=== PATIENT | male | born 1960 | race African-American/Black ===

== ENCOUNTER 2018-11-09 10:53 | Inpatient (IN) | payer MEDICAID, OTHER ==
[~2018-11-09] VITALS: Ht 175.3 cm; Wt 58.1 kg
[2018-11-09 11:36] LABS: HEMATOCRIT. 35.1 % (42.0-52.0); HEMOGLOBIN. 11.8 g/dL (14.0-18.0); MEAN CORPUSCULAR HEMOGLOBIN 32.9 pg (28.0-32.0); MEAN CORPUSCULAR VOLUME 98.3 fL (80.0-94.0); PLATELET 257 x1000/uL (130-400); RED BLOOD CELL COUNT 3.57 mill/uL (4.7-6.1); RED CELL DISTRIBUTION WIDTH 15.3 % (11.6-14.6)
[2018-11-09 11:39] LABS: CHLORIDE 95 mEq/L (98-107)
[2018-11-09] MEDS ORDERED: LEVOFLOXACIN 500MG PREMIX 100 ML IV ONE (11:45)
[2018-11-09] MEDS ORDERED: POTASSIUM CHLORIDE 20MEQ TABLET SR PO ONE (11:45)
[2018-11-09] MEDS ORDERED: ALBUTEROL (0.083%) 2.5MG/3ML NEB HHN STA (11:51)
[2018-11-09] MEDS ORDERED: IPRATROPIUM BROMIDE (0.02%) 0.5MG/2.5ML NEB HHN STA (11:51)
[2018-11-09] MEDS ORDERED: FUROSEMIDE 20MG/2ML VIAL IVP ONE (12:00)
[2018-11-09] MEDS ORDERED: ASPIRIN 81MG TABLET PO ONE (12:00)
[2018-11-09 12:24] LABS: PLATELET ESTIMATE NORMAL
[2018-11-09 12:49] LABS: *COCAINE SCREEN URINE NEGATIVE (NEGATIVE); CANNABINOID URINE SCREEN PRESUMTIVE POSITIVE (NEGATIVE); PHENCYCLIDINE URINE SCREEN NEGATIVE (NEGATIVE)
[2018-11-09 12:50] LABS: *AMPHETAMINES SCREEN URINE PRESUMTIVE POSITIVE (NEGATIVE)
[2018-11-09 12:51] LABS: *BENZODIAZEPINES SCREEN URINE NEGATIVE (NEGATIVE); METHADONE URINE SCREEN NEGATIVE (NEGATIVE)
[2018-11-09 12:52] LABS: *BARBITURATES SCREEN URINE NEGATIVE (NEGATIVE)
[2018-11-09 12:53] LABS: OPIATES URINE SCREEN NEGATIVE (NEGATIVE)
[2018-11-09 13:50] VITALS: BP 148/71
[2018-11-09 16:00] VITALS: BP 148/78
[2018-11-09] MEDS ORDERED: DIPHENHYDRAMINE 50MG/ML VIAL IV PRN (16:15)
[2018-11-09] MEDS ORDERED: LORAZEPAM 2MG/ML CPJ IV PRN (16:15)
[2018-11-09] MEDS ORDERED: GUAIFENESIN 200MG/10ML SUGAR FREE UDC PO PRN (16:15)
[2018-11-09] MEDS ORDERED: NA PHOS,M-B/NA PHOS,DI-BA ENEMA 118ML PR PRN (16:15)
[2018-11-09] MEDS ORDERED: DOCUSATE SODIUM 100MG CAPSULE PO PRN (16:15)
[2018-11-09] MEDS ORDERED: MAGNESIUM/ALUMINUM HYDROXIDE/SIMETHICONE 30ML UDC PO PRN (16:15)
[2018-11-09] MEDS ORDERED: ONDANSETRON HCL 4MG/2ML INJ IV PRN (16:15)
[2018-11-09] MEDS ORDERED: CLONIDINE 0.1MG TABLET PO PRN (16:15)
[2018-11-09] MEDS ORDERED: HYDRALAZINE 20MG/ML VIAL IV PRN (16:15)
[2018-11-09 16:38] VITALS: BP 148/78
[2018-11-09] MEDS: ENOXAPARIN 40MG/0.4ML SYR SUBCUT SCH (17:07)
[2018-11-09] MEDS: IPRATROPIUM/ALBUTEROL 0.5-3(2.5)MG/3ML NEB INH PRN ×2 (17:11→20:55)
[2018-11-09 20:00] VITALS: BP 140/83
[2018-11-09] MEDS: SODIUM CHLORIDE 0.9% INJ 3ML FLUSH IVF SCH (21:23)
[2018-11-10] VITALS: BP 153/83
[2018-11-10 00:21] LABS: CREATINE KINASE 95 IU/L (39-308)
[2018-11-10 00:22] LABS: CREATINE KINASE MB FRACTION < 1.0 ng/mL (0.5-3.6)
[2018-11-10] MEDS: HYDROCODONE/ACETAMINOPHEN 10/325MG TABLET PO PRN ×2 (03:18→06:45)
[2018-11-10 04:00] VITALS: BP 139/83
[2018-11-10] MEDS: IPRATROPIUM/ALBUTEROL 0.5-3(2.5)MG/3ML NEB INH PRN ×3 (04:02→14:55)
[2018-11-10] MEDS: ACETAMINOPHEN 325MG TABLET PO PRN (05:30)
[2018-11-10] MEDS: SODIUM CHLORIDE 0.9% INJ 3ML FLUSH IVF SCH ×3 (05:30→22:38)
[2018-11-10 07:18] LABS: HEMATOCRIT. 34.8 % (42.0-52.0); HEMOGLOBIN. 11.6 g/dL (14.0-18.0); MEAN CORPUSCULAR HEMOGLOBIN 33.3 pg (28.0-32.0); MEAN CORPUSCULAR VOLUME 99.7 fL (80.0-94.0); MEAN PLATELET VOLUME 7.1 fl (7.4-10.4); PLATELET 294 x1000/uL (130-400); RED CELL DISTRIBUTION WIDTH 15.1 % (11.6-14.6)
[2018-11-10 08:00] VITALS: BP 126/69
[2018-11-10] MEDS: LEVOFLOXACIN 500MG PREMIX 100 ML IV SCH (08:16)
[2018-11-10] MEDS: ASPIRIN 81MG EC TABLET PO SCH (08:16)
[2018-11-10 09:54] LABS: CHLORIDE 95 mEq/L (98-107)
[2018-11-10 10:12] LABS: LDL CHOLESTEROL 52 mg/dL (5-100)
[2018-11-10 10:13] LABS: CREATINE KINASE 84 IU/L (39-308)
[2018-11-10 10:14] LABS: CREATINE KINASE MB FRACTION < 1.0 ng/mL (0.5-3.6); HDL CHOLESTEROL 20 mg/dL (40-59)
[2018-11-10 10:15] LABS: T4 FREE 1.09 ng/dL (0.76-1.46)
[2018-11-10 12:00] VITALS: BP 124/71
[2018-11-10 13:12] LABS: PLATELET ESTIMATE NORMAL
[2018-11-10 14:11] LABS: T4 FREE 1.09 ng/dL (0.76-1.46)
[2018-11-10 14:49] LABS: CREATINE KINASE 72 IU/L (39-308); CREATINE KINASE MB FRACTION < 1.0 ng/mL (0.5-3.6)
[2018-11-10 16:00] VITALS: BP 125/81
[2018-11-10] MEDS: ENOXAPARIN 40MG/0.4ML SYR SUBCUT SCH (17:46)
[2018-11-10 20:00] VITALS: BP 129/81
[2018-11-10] MEDS ORDERED: VANCOMYCIN 1250MG in DEXTROSE 5% WATER 250ML IV SCH (20:00)
[2018-11-10] MEDS ORDERED: POTASSIUM CHLORIDE 20MEQ TABLET SR PO NR (20:30)
[2018-11-11] VITALS: BP 128/79
[2018-11-11 04:00] VITALS: BP 110/83
[2018-11-11] MEDS ORDERED: VANCOMYCIN 1 G PREMIX 200 ML IV SCH (04:00)
[2018-11-11 04:01] LABS: CREATINE KINASE 129 IU/L (39-308)
[2018-11-11 04:03] LABS: CREATINE KINASE MB FRACTION < 1.0 ng/mL (0.5-3.6)
[2018-11-11] MEDS: SODIUM CHLORIDE 0.9% INJ 3ML FLUSH IVF SCH ×3 (06:25→21:46)
[2018-11-11] MEDS: HYDROMORPHONE HCL/PF 2MG/ML CPJ IV PRN ×2 (06:31→10:40)
[2018-11-11 07:32] LABS: CREATINE KINASE 157 IU/L (39-308)
[2018-11-11 07:34] LABS: CREATINE KINASE MB FRACTION < 1.0 ng/mL (0.5-3.6)
[2018-11-11 08:00] VITALS: BP 131/73
[2018-11-11] MEDS: IPRATROPIUM/ALBUTEROL 0.5-3(2.5)MG/3ML NEB HHN SCH ×3 (08:25→20:08)
[2018-11-11] MEDS: ASPIRIN 81MG EC TABLET PO SCH (09:30)
[2018-11-11] MEDS: LEVOFLOXACIN 500MG PREMIX 100 ML IV SCH (09:31)
[2018-11-11 12:00] VITALS: BP 122/75
[2018-11-11] MEDS: VANCOMYCIN 1 G PREMIX 200 ML IV SCH ×2 (14:06→21:46)
[2018-11-11 16:00] VITALS: BP 139/77
[2018-11-11] MEDS: ENOXAPARIN 40MG/0.4ML SYR SUBCUT SCH (17:00)
[2018-11-11 20:00] VITALS: BP 128/77
[2018-11-12] VITALS: BP 126/78
[2018-11-12] MEDS: IPRATROPIUM/ALBUTEROL 0.5-3(2.5)MG/3ML NEB HHN SCH ×4 (02:05→21:40)
[2018-11-12 04:00] VITALS: BP 134/72
[2018-11-12 05:13] LABS: BASOPHILS % 0.1 % (0.0-2.0); EOSINOPHILS % 0.1 % (0.0-5.0); HEMATOCRIT. 35.2 % (42.0-52.0); HEMOGLOBIN. 11.8 g/dL (14.0-18.0); LYMPHOCYTES % 17.8 % (20.0-50.0); MEAN CORPUSCULAR HEMOGLOBIN 33.5 pg (28.0-32.0); MEAN CORPUSCULAR VOLUME 100.1 fL (80.0-94.0); MEAN PLATELET VOLUME 6.8 fl (7.4-10.4); PLATELET 425 x1000/uL (130-400); RED BLOOD CELL COUNT 3.51 mill/uL (4.7-6.1); RED CELL DISTRIBUTION WIDTH 15.6 % (11.6-14.6)
[2018-11-12 05:14] LABS: HIV SCREEN 4G Non Reactive (Non Reactive)
[2018-11-12 05:35] LABS: CHLORIDE 98 mEq/L (98-107)
[2018-11-12] MEDS: VANCOMYCIN 1 G PREMIX 200 ML IV SCH ×2 (05:39→13:58)
[2018-11-12] MEDS: SODIUM CHLORIDE 0.9% INJ 3ML FLUSH IVF SCH ×3 (05:39→21:22)
[2018-11-12 05:47] LABS: VANCOMYCIN TROUGH 11.5 ug/mL (5.0-10.0)
[2018-11-12 08:00] VITALS: BP 117/78
[2018-11-12] MEDS: ASPIRIN 81MG EC TABLET PO SCH (09:19)
[2018-11-12] MEDS: LEVOFLOXACIN 500MG PREMIX 100 ML IV SCH (09:20)
[2018-11-12] MEDS: ACETAMINOPHEN 325MG TABLET PO PRN (09:27)
[2018-11-12 12:00] VITALS: BP 120/70
[2018-11-12 16:00] VITALS: BP 118/76
[2018-11-12] MEDS: ENOXAPARIN 40MG/0.4ML SYR SUBCUT SCH (17:45)
[2018-11-12 20:00] VITALS: BP 114/65
[2018-11-12] MEDS: VANCOMYCIN 1500MG in DEXTROSE 5% WATER 250ML IV SCH (21:20)
[2018-11-12] MEDS: HYDROCODONE/ACETAMINOPHEN 10/325MG TABLET PO PRN (21:21)
[2018-11-13] VITALS: BP 116/61
[2018-11-13] MEDS: IPRATROPIUM/ALBUTEROL 0.5-3(2.5)MG/3ML NEB HHN SCH ×4 (02:14→21:36)
[2018-11-13] MEDS: HYDROCODONE/ACETAMINOPHEN 10/325MG TABLET PO PRN ×2 (03:43→10:24)
[2018-11-13 04:00] VITALS: BP 142/80
[2018-11-13] MEDS: VANCOMYCIN 1500MG in DEXTROSE 5% WATER 250ML IV SCH ×4 (05:54→21:53)
[2018-11-13] MEDS: SODIUM CHLORIDE 0.9% INJ 3ML FLUSH IVF SCH ×3 (05:54→21:53)
[2018-11-13 08:00] VITALS: BP 137/84
[2018-11-13] MEDS: ASPIRIN 81MG EC TABLET PO SCH (08:25)
[2018-11-13] MEDS: LEVOFLOXACIN 500MG PREMIX 100 ML IV SCH (08:25)
[2018-11-13 12:00] VITALS: BP 117/75
[2018-11-13 15:06] LABS: QFT TB GOLD PLUS Negative (Negative); QFT TB1 AG VALUE 0.06 IU/mL (.)
[2018-11-13 16:00] VITALS: BP 115/76
[2018-11-13] MEDS: ENOXAPARIN 40MG/0.4ML SYR SUBCUT SCH (16:22)
[2018-11-13 20:00] VITALS: BP 128/77
[2018-11-14] VITALS: BP_SYST 124; BP_SYST 135; BP_DIAS 67; BP_DIAS 81
[2018-11-14] MEDS: IPRATROPIUM/ALBUTEROL 0.5-3(2.5)MG/3ML NEB HHN SCH ×2 (02:52→11:04)
[2018-11-14 04:00] VITALS: BP 124/67
[2018-11-14] MEDS: VANCOMYCIN 1500MG in DEXTROSE 5% WATER 250ML IV SCH (05:34)
[2018-11-14] MEDS: SODIUM CHLORIDE 0.9% INJ 3ML FLUSH IVF SCH ×2 (05:45→14:00)
[2018-11-14 07:02] LABS: BASOPHILS % 0.2 % (0.0-2.0); EOSINOPHILS % 0.4 % (0.0-5.0); HEMATOCRIT. 31.3 % (42.0-52.0); HEMOGLOBIN. 10.5 g/dL (14.0-18.0); LYMPHOCYTES % 21.3 % (20.0-50.0); MEAN CORPUSCULAR HEMOGLOBIN 33.5 pg (28.0-32.0); MEAN CORPUSCULAR VOLUME 99.7 fL (80.0-94.0); MEAN PLATELET VOLUME 6.5 fl (7.4-10.4); MONOCYTES % 11.1 % (2.0-8.0); PLATELET 517 x1000/uL (130-400); RED BLOOD CELL COUNT 3.14 mill/uL (4.7-6.1)
[2018-11-14 07:11] LABS: CHLORIDE 98 mEq/L (98-107)
[2018-11-14 08:12] VITALS: BP 113/70
[2018-11-14 08:18] VITALS: BP 102/81
[2018-11-14] MEDS: ASPIRIN 81MG EC TABLET PO SCH (08:21)
[2018-11-14] MEDS: LEVOFLOXACIN 500MG PREMIX 100 ML IV SCH (08:21)
[2018-11-14 12:25] VITALS: BP 121/79
[2018-11-14 12:35] VITALS: BP 121/79
[2018-11-14] MEDS ORDERED: VANCOMYCIN 1250MG in DEXTROSE 5% WATER 250ML IV SCH (17:00)
== END 2018-11-14 15:10 | disposition home or self-care (01) | DRG 720 ==
LOC: ER 11:11 → EDBEDREQ 12:07 → 7WST 12:12 → EDBEDREQ 12:18 → ENRESERV 13:16
PROVIDERS: ADMIT Internal Medicine; ATTEND Internal Medicine
DX: A40.3 Sepsis due to Streptococcus pneumoniae (principal); J96.00 Acute respiratory failure, unspecified whether with hypoxia or hypercapnia; J13 Pneumonia due to Streptococcus pneumoniae; E44.0 Moderate protein-calorie malnutrition; E87.1 Hypo-osmolality and hyponatremia; D64.9 Anemia, unspecified; E87.6 Hypokalemia; F14.10 Cocaine abuse, uncomplicated; F15.10 Other stimulant abuse, uncomplicated; B96.89 Other specified bacterial agents as the cause of diseases classified elsewhere; F12.10 Cannabis abuse, uncomplicated; Z68.1 Body mass index [BMI] 19.9 or less, adult
CPT/HCPCS: 36415; 71045; 80048; 80061; 80202; 80305; 82550; 82553; 83036; 83880; 84439; 84443; 84484; 85379; 86480; 86592; 87077; 87186; 87389; 87804; 93005; 93306; 93970; 94640; 96374; 96375; 97110; 97116; 97162; 97166; 99291; J1170; J1650; J1940; J1956; J2060; J3370; J7050; J7060; J7611; J7620

== ENCOUNTER 2020-05-20 17:31 | Inpatient (IN) | payer MEDICAID ==
[~2020-05-20] VITALS: Ht 170.2 cm; Wt 67.3 kg
[2020-05-20 19:11] LABS: HEMATOCRIT. 39.8 % (42.0-52.0); HEMOGLOBIN. 13.5 g/dL (14.0-18.0); MEAN PLATELET VOLUME 6.6 fl (7.4-10.4); PLATELET 263 x1000/uL (130-400); RED BLOOD CELL COUNT 3.87 mill/uL (4.7-6.1); RED CELL DISTRIBUTION WIDTH 15.2 % (11.6-14.6)
[2020-05-20 19:17] LABS: CHLORIDE 99 mEq/L (98-107)
[2020-05-20 20:12] LABS: PLATELET ESTIMATE NORMAL
[2020-05-20] MEDS ORDERED: PIPERACILLIN/TAZOBACTAM 3.375GM/50ML PREMIX IV ONE (22:15)
[2020-05-20] MEDS ORDERED: PIPERACILLIN/TAZ 3.375G PREMIX 50 ML IV NR (22:30)
[2020-05-21] MEDS ORDERED: IPRATROPIUM/ALBUTEROL 0.5-3(2.5)MG/3ML NEB HHN PRN (00:15)
[2020-05-21] MEDS ORDERED: ONDANSETRON HCL 4MG/2ML INJ IV PRN (00:15)
[2020-05-21] MEDS ORDERED: GUAIFENESIN 200MG/10ML SUGAR FREE UDC PO PRN (00:15)
[2020-05-21] MEDS ORDERED: MAGNESIUM/ALUMINUM HYDROXIDE/SIMETHICONE 30ML UDC PO PRN (00:15)
[2020-05-21] MEDS ORDERED: BENZONATATE 200MG CAPSULE PO PRN (00:15)
[2020-05-21] MEDS ORDERED: DIPHENHYDRAMINE 50MG/ML VIAL IV PRN (00:15)
[2020-05-21] MEDS ORDERED: ACETAMINOPHEN 325MG TABLET PO PRN ×2 (00:15)
[2020-05-21] MEDS ORDERED: CLONIDINE 0.1MG TABLET PO PRN (00:15)
[2020-05-21] MEDS ORDERED: MAGNESIUM HYDROXIDE 400MG/5ML 30ML UDC PO PRN (00:45)
[2020-05-21] MEDS: LEVOFLOXACIN 500MG PREMIX 100 ML IV SCH (04:43)
[2020-05-21 05:28] LABS: CLARITY URINE CLEAR (CLEAR); COLOR URINE YELLOW (YELLOW); KETONES URINE NEGATIVE (NEGATIVE); LEUKOCYTE ESTERASE URINE NEGATIVE (NEGATIVE); NITRITE URINE NEGATIVE (NEGATIVE); OCCULT BLOOD URINE TRACE (NEGATIVE); PH URINE 5.5 (4.5-8.0); PROTEIN URINE 3+ (NEGATIVE); SPECIFIC GRAVITY URINE 1.028 (1.005-1.030)
[2020-05-21] MEDS: SODIUM CHLORIDE 0.9% INJ 3ML FLUSH IVF SCH ×3 (06:09→22:00)
[2020-05-21] MEDS: GUAIFENESIN 600MG ER TABLET PO SCH ×2 (09:00→21:00)
[2020-05-21] MEDS ORDERED: ENOXAPARIN 40MG/0.4ML SYR SUBCUT SCH (09:00)
[2020-05-21] MEDS ORDERED: DILTIAZEM HCL 5MG/ML 5ML VIAL IV ONE (12:00)
[2020-05-21] MEDS ORDERED: DILTIAZEM HCL 125 MG in DEXT 5% WATER 100 ML IV ONE (12:30)
[2020-05-21] MEDS ORDERED: DILTIAZEM HCL 125 MG in DEXTROSE 5% WATER 125 ML IV PRN (12:30)
[2020-05-21] MEDS: DILTIAZEM HCL 60MG TABLET PO SCH ×2 (14:30→22:00)
[2020-05-21] MEDS ORDERED: IPRATROPIUM/ALBUTEROL 0.5-3(2.5)MG/3ML NEB HHN NR (15:15)
[2020-05-21] MEDS ORDERED: METOPROLOL TARTRATE 5MG/5ML VIAL IV NR (15:30)
[2020-05-21] MEDS: ENOXAPARIN 80MG/0.8ML SYR SUBCUT SCH (16:30)
[2020-05-21 16:52] LABS: BG BASE EXCESS 1.2 mmol/L (-2.0-2.0); BG CARBOXYHEMOGLOBIN 0.3 % (0.5-1.5); BG FRACTION INSPIRED OXYGEN 48; BG HCO3 ACT 24.7 mmol/L (22.0-26.0); BG METHEMOGLOBIN 0.3 % (0.0-1.5); BG OXYHEMOGLOBIN 96.4 % (94.0-97.0); BG PCO2 35.6 mmHg (35.0-45.0); BG PH 7.459 (7.350-7.450); BG PO2 87.6 mmHg (75.0-100.0); BG SAMPLE SITE RIGHT BRACHIAL; BG VENT MODE NASAL CANNULA
[2020-05-21] MEDS ORDERED: VANCOMYCIN 1250MG in DEXTROSE 5% WATER 250ML IV NR (18:00)
[2020-05-21] MEDS ORDERED: METOPROLOL TARTRATE 5MG/5ML VIAL IV SCH (20:00)
[2020-05-21] MEDS ORDERED: ZOLPIDEM TARTRATE 5MG TABLET PO PRN (21:00)
[2020-05-22] MEDS: VANCOMYCIN 1 G PREMIX 200 ML IV SCH ×3 (02:00→18:35)
[2020-05-22] MEDS: LEVOFLOXACIN 500MG PREMIX 100 ML IV SCH (04:00)
[2020-05-22 05:20] LABS: BASOPHILS % 0.1 % (0.0-2.0); EOSINOPHILS % 0.1 % (0.0-5.0); HEMOGLOBIN. 11.8 g/dL (14.0-18.0); LYMPHOCYTES % 16.4 % (20.0-50.0); MEAN CORPUSCULAR HEMOGLOBIN 34.5 pg (28.0-32.0); MEAN CORPUSCULAR VOLUME 102.5 fL (80.0-94.0); MONOCYTES % 7.7 % (2.0-8.0); NEUTROPHILS % 75.7 % (40.0-76.0); PLATELET 256 x1000/uL (130-400); RED BLOOD CELL COUNT 3.41 mill/uL (4.7-6.1); RED CELL DISTRIBUTION WIDTH 14.9 % (11.6-14.6)
[2020-05-22 05:31] LABS: CHLORIDE 100 mEq/L (98-107)
[2020-05-22 05:58] LABS: INR 1.2
[2020-05-22] MEDS: SODIUM CHLORIDE 0.9% INJ 3ML FLUSH IVF SCH ×2 (06:10→15:24)
[2020-05-22] MEDS: ENOXAPARIN 80MG/0.8ML SYR SUBCUT SCH (06:11)
[2020-05-22] MEDS ORDERED: DILTIAZEM HCL 125 MG in DEXT 5% WATER 100 ML IV SCH ×2 (08:00→16:00)
[2020-05-22 10:44] LABS: BG CARBOXYHEMOGLOBIN 0.7 % (0.5-1.5); BG DEOXYHEMOGLOBIN 4.8 % (0.0-5.0); BG FRACTION INSPIRED OXYGEN 21; BG METHEMOGLOBIN 0.3 % (0.0-1.5); BG OXYGEN SATURATION 95.2 % (92.0-98.5); BG OXYHEMOGLOBIN 94.2 % (94.0-97.0); BG PCO2 33.9 mmHg (35.0-45.0); BG PH 7.485 (7.350-7.450); BG PO2 70.2 mmHg (75.0-100.0); BG SAMPLE SITE RIGHT BRACHIAL; BG TOTAL HEMOGLOBIN 14.1 g/dL (12.0-18.0); BG VENT MODE ROOM AIR
[2020-05-22] MEDS: NICOTINE 14MG PATCH TD SCH (12:16)
[2020-05-22] MEDS: GUAIFENESIN 600MG ER TABLET PO SCH ×2 (12:16→21:00)
[2020-05-22] MEDS: METOPROLOL TARTRATE 5MG/5ML VIAL IV SCH ×2 (12:17→18:34)
[2020-05-22] MEDS: DILTIAZEM HCL 30MG TABLET PO SCH ×2 (15:28→18:35)
[2020-05-23] VITALS (8 sets, daily range): BP systolic 120–147; BP diastolic 75–95
[2020-05-23] MEDS: VANCOMYCIN 1 G PREMIX 200 ML IV SCH ×3 (01:00→15:34)
[2020-05-23] MEDS: METOPROLOL TARTRATE 5MG/5ML VIAL IV SCH ×2 (02:00→09:45)
[2020-05-23] MEDS: LEVOFLOXACIN 500MG PREMIX 100 ML IV SCH (05:05)
[2020-05-23] MEDS: DILTIAZEM HCL 30MG TABLET PO SCH ×3 (06:11→18:48)
[2020-05-23] MEDS: SODIUM CHLORIDE 0.9% INJ 3ML FLUSH IVF SCH ×3 (06:11→21:26)
[2020-05-23] MEDS: ENOXAPARIN 80MG/0.8ML SYR SUBCUT SCH ×2 (06:12→18:46)
[2020-05-23] MEDS: NICOTINE 14MG PATCH TD SCH (09:46)
[2020-05-23] MEDS: GUAIFENESIN 600MG ER TABLET PO SCH ×2 (09:47→21:25)
[2020-05-23 10:21] LABS: BASOPHILS % 0.1 % (0.0-2.0); EOSINOPHILS % 0.1 % (0.0-5.0); HEMATOCRIT. 36.5 % (42.0-52.0); HEMOGLOBIN. 12.2 g/dL (14.0-18.0); LYMPHOCYTES % 21.7 % (20.0-50.0); MEAN CORPUSCULAR HEMOGLOBIN 34.2 pg (28.0-32.0); MEAN CORPUSCULAR VOLUME 102.6 fL (80.0-94.0); MEAN PLATELET VOLUME 6.6 fl (7.4-10.4); MONOCYTES % 14.3 % (2.0-8.0); NEUTROPHILS % 63.8 % (40.0-76.0); PLATELET 272 x1000/uL (130-400); RED BLOOD CELL COUNT 3.55 mill/uL (4.7-6.1); RED CELL DISTRIBUTION WIDTH 15.3 % (11.6-14.6)
[2020-05-23 10:41] LABS: CHLORIDE 104 mEq/L (98-107)
[2020-05-23] MEDS: METOPROLOL TARTRATE 25MG TABLET PO SCH (21:26)
[2020-05-24] VITALS: BP 121/77
[2020-05-24] MEDS: DILTIAZEM HCL 30MG TABLET PO SCH ×4 (00:42→18:07)
[2020-05-24] MEDS: VANCOMYCIN 1 G PREMIX 200 ML IV SCH ×3 (00:43→15:54)
[2020-05-24 04:00] VITALS: BP 129/88
[2020-05-24] MEDS: ENOXAPARIN 80MG/0.8ML SYR SUBCUT SCH ×2 (05:12→18:07)
[2020-05-24] MEDS: SODIUM CHLORIDE 0.9% INJ 3ML FLUSH IVF SCH ×3 (05:12→21:17)
[2020-05-24 07:08] LABS: HEMATOCRIT. 34.8 % (42.0-52.0); HEMOGLOBIN. 11.9 g/dL (14.0-18.0); MEAN CORPUSCULAR VOLUME 102.7 fL (80.0-94.0); MEAN PLATELET VOLUME 6.5 fl (7.4-10.4); PLATELET 283 x1000/uL (130-400); RED BLOOD CELL COUNT 3.39 mill/uL (4.7-6.1); RED CELL DISTRIBUTION WIDTH 15.1 % (11.6-14.6)
[2020-05-24 07:22] LABS: CHLORIDE 107 mEq/L (98-107)
[2020-05-24 08:00] VITALS: BP 127/101
[2020-05-24] MEDS: METOPROLOL TARTRATE 25MG TABLET PO SCH ×2 (08:26→21:16)
[2020-05-24] MEDS: GUAIFENESIN 600MG ER TABLET PO SCH ×2 (08:26→21:16)
[2020-05-24] MEDS: NICOTINE 14MG PATCH TD SCH (08:27)
[2020-05-24] MEDS: LEVOFLOXACIN 500MG TABLET PO SCH (11:52)
[2020-05-24 12:00] VITALS: BP 118/72
[2020-05-24 13:29] LABS: *AMPHETAMINES SCREEN URINE NEGATIVE (NEGATIVE)
[2020-05-24 13:30] LABS: *BARBITURATES SCREEN URINE NEGATIVE (NEGATIVE); *BENZODIAZEPINES SCREEN URINE NEGATIVE (NEGATIVE); *COCAINE SCREEN URINE NEGATIVE (NEGATIVE); CANNABINOID URINE SCREEN PRESUMTIVE POSITIVE (NEGATIVE); METHADONE URINE SCREEN NEGATIVE (NEGATIVE); OPIATES URINE SCREEN NEGATIVE (NEGATIVE); PHENCYCLIDINE URINE SCREEN NEGATIVE (NEGATIVE)
[2020-05-24 16:00] VITALS: BP 130/87
[2020-05-24 17:20] LABS: PLATELET ESTIMATE NORMAL
[2020-05-24 20:00] VITALS: BP 128/85
[2020-05-25] VITALS: BP 118/88
[2020-05-25] MEDS: VANCOMYCIN 1 G PREMIX 200 ML IV SCH ×2 (01:04→11:27)
[2020-05-25] MEDS: DILTIAZEM HCL 30MG TABLET PO SCH ×3 (01:05→11:32)
[2020-05-25 04:00] VITALS: BP 117/73
[2020-05-25] MEDS: ENOXAPARIN 80MG/0.8ML SYR SUBCUT SCH (05:58)
[2020-05-25] MEDS: SODIUM CHLORIDE 0.9% INJ 3ML FLUSH IVF SCH (06:00)
[2020-05-25 08:00] VITALS: BP 131/84
[2020-05-25] MEDS: METOPROLOL TARTRATE 25MG TABLET PO SCH (11:28)
[2020-05-25] MEDS: NICOTINE 14MG PATCH TD SCH (11:28)
[2020-05-25] MEDS: GUAIFENESIN 600MG ER TABLET PO SCH (11:32)
[2020-05-25] MEDS: LEVOFLOXACIN 500MG TABLET PO SCH (11:32)
[2020-05-25 17:13] VITALS: BP 131/84
== END 2020-05-25 18:00 | disposition home or self-care (01) | DRG 720 ==
LOC: ER 17:31 → 3WST 22:09 → ENRESERV 05-21 07:14 → CANRESERV 05-21 12:01 → EDBEDREQSVC 05-21 12:30 → EDBEDREQTM 05-22 19:51 → EDBEDREQSVC 05-22 19:51 → EDBEDREQDT 05-22 19:51 → ENRESERV 05-23 01:31 → 6EST 05-24 17:47
PROVIDERS: ADMIT Internal Medicine; ATTEND Internal Medicine
DX: A41.9 Sepsis, unspecified organism (principal); J18.9 Pneumonia, unspecified organism; E46 Unspecified protein-calorie malnutrition; E87.2 Acidosis; I10 Essential (primary) hypertension; I47.1 Supraventricular tachycardia; I48.91 Unspecified atrial fibrillation; I48.92 Unspecified atrial flutter; K56.41 Fecal impaction; J45.909 Unspecified asthma, uncomplicated; J96.01 Acute respiratory failure with hypoxia; J91.8 Pleural effusion in other conditions classified elsewhere; R65.20 Severe sepsis without septic shock; Z20.822 Contact with and (suspected) exposure to COVID-19; F15.90 Other stimulant use, unspecified, uncomplicated; F17.210 Nicotine dependence, cigarettes, uncomplicated; Z79.899 Other long term (current) drug therapy; Z59.0 Homelessness; Z68.23 Body mass index [BMI] 23.0-23.9, adult; Z79.82 Long term (current) use of aspirin; Z91.19 Patient's noncompliance with other medical treatment and regimen; Z87.01 Personal history of pneumonia (recurrent); Z87.09 Personal history of other diseases of the respiratory system
CPT/HCPCS: 36415; 71045; 71250; 74176; 80048; 80076; 80202; 80305; 84484; 85025; 93005; 93306; 99291; C9803; J1650; J1956; J2543; J3370; J3490; J7040; J7060

== ENCOUNTER 2021-11-18 14:36 | Emergency (ER) | payer MEDICAID ==
[~2021-11-18] VITALS: Ht 170.2 cm; Wt 65.0 kg
[2021-11-18 14:43] VITALS: BP 142/88
[2021-11-18] MEDS ORDERED: ACETAMINOPHEN 325MG TABLET PO ONE (15:30)
== END 2021-11-18 20:54 | disposition home or self-care (01) ==
LOC: ER 14:36
DX: M79.18 Myalgia, other site (principal); Z59.00 Homelessness unspecified; Z87.891 Personal history of nicotine dependence
CPT/HCPCS: 99283

== ENCOUNTER 2022-03-18 08:59 | Inpatient (IN) | payer MEDICAID ==
[~2022-03-18] VITALS: Ht 175.3 cm; Wt 65.0 kg
[2022-03-18] MEDS ORDERED: SODIUM CHLORIDE 0.9% 1,000 ML IV ONE (09:45)
[2022-03-18 09:52] LABS: HEMATOCRIT. 31.2 % (42.0-52.0); HEMOGLOBIN. 10.1 g/dL (14.0-18.0); MEAN CORPUSCULAR HEMOGLOBIN 34.7 pg (28.0-32.0); MEAN CORPUSCULAR VOLUME 107.5 fL (80.0-94.0); PLATELET 191 x1000/uL (130-400); RED CELL DISTRIBUTION WIDTH 16.5 % (11.6-14.6)
[2022-03-18 09:59] LABS: CHLORIDE 103 mEq/L (98-107)
[2022-03-18 10:13] LABS: INR 1.7; PROTHROMBIN TIME 17.7 sec (9.6-11.0)
[2022-03-18 10:20] LABS: PLATELET ESTIMATE NORMAL
[2022-03-18] MEDS ORDERED: PROPOFOL 10MG/ML 100ML 100 ML IV SCH (10:30)
[2022-03-18] MEDS ORDERED: VECURONIUM BROMIDE 10 MG/VIAL IV NR (10:30)
[2022-03-18] MEDS ORDERED: ETOMIDATE 2MG/ML 10ML VIAL IV NR (10:30)
[2022-03-18] MEDS ORDERED: NOREPINEPHRINE 8MG/250ML PMX 250 ML IV ONE (10:33)
[2022-03-18] MEDS ORDERED: FENTANYL 2500MCG/250ML PMX 250 ML IV ONE ×2 (10:33→11:24)
[2022-03-18 10:55] LABS: BG BASE EXCESS -13.2 mmol/L (-2.0-2.0); BG CARBOXYHEMOGLOBIN 0.3 % (0.5-1.5); BG DEOXYHEMOGLOBIN 5.2 % (0.0-5.0); BG HCO3 ACT 17.3 mmol/L (22.0-26.0); BG METHEMOGLOBIN 0.5 % (0.0-1.5); BG OXYGEN SATURATION 94.8 % (92.0-98.5); BG PCO2 61.3 mmHg (35.0-45.0); BG PH 7.068 (7.350-7.450); BG PO2 103.9 mmHg (75.0-100.0); BG SAMPLE SITE RIGHT RADIAL; BG TOTAL HEMOGLOBIN 12.2 g/dL (12.0-18.0); BG VENT MODE VENT - AC
[2022-03-18 11:17] LABS: CLARITY URINE CLOUDY (CLEAR); COLOR URINE YELLOW (YELLOW); KETONES URINE NEGATIVE (NEGATIVE); LEUKOCYTE ESTERASE URINE 2+ (NEGATIVE); NITRITE URINE POSITIVE (NEGATIVE); OCCULT BLOOD URINE NEGATIVE (NEGATIVE); PROTEIN URINE 2+ (NEGATIVE); SPECIFIC GRAVITY URINE 1.013 (1.005-1.030)
[2022-03-18] MEDS ORDERED: DOXYCYCLINE HYCLATE 100 MG/VIAL IV ONE (11:45)
[2022-03-18] MEDS ORDERED: CEFTRIAXONE 1 G PREMIX 50 ML IV ONE (11:45)
[2022-03-18] MEDS ORDERED: POTASSIUM CHLORIDE 20MEQ/PACKET NG SCH (12:00)
[2022-03-18] MEDS ORDERED: KCL 20MEQ/100ML PREMIX 100 ML IV SCH (12:00)
[2022-03-18] MEDS ORDERED: DOXYCYCLINE 100MG in DEXTROSE 5% WATER 100ML IV NR (12:30)
[2022-03-18 12:45] VITALS: BP 96/56
[2022-03-18 12:48] LABS: CHLORIDE 106 mEq/L (98-107)
[2022-03-18 12:54] LABS: INR 2.6; PROTHROMBIN TIME 25.8 sec (9.6-11.0)
[2022-03-18] MEDS ORDERED: IPRATROPIUM/ALBUTEROL 0.5-3(2.5)MG/3ML NEB HHN PRN (13:00)
[2022-03-18 13:28] LABS: BG BASE EXCESS -18.2 mmol/L (-2.0-2.0); BG CARBOXYHEMOGLOBIN 0.6 % (0.5-1.5); BG DEOXYHEMOGLOBIN 25.5 % (0.0-5.0); BG FRACTION INSPIRED OXYGEN 100; BG HCO3 ACT 13.6 mmol/L (22.0-26.0); BG METHEMOGLOBIN 0.6 % (0.0-1.5); BG OXYGEN SATURATION 74.2 % (92.0-98.5); BG OXYHEMOGLOBIN 73.3 % (94.0-97.0); BG PCO2 60.6 mmHg (35.0-45.0); BG PH 6.969 (7.350-7.450); BG PO2 58.5 mmHg (75.0-100.0); BG SAMPLE SITE LEFT RADIAL; BG TOTAL RESPIRATORY RATE 22 b/min; BG VENT MODE VENT - AC
[2022-03-18] MEDS ORDERED: SODIUM BICARBONATE 100 MEQ in SODIUM CHLORIDE 0.45% 1,000 ML IV SCH (13:30)
[2022-03-18] MEDS ORDERED: MIDAZOLAM HCL 100 MG in SODIUM CHLORIDE 0.9% 80 ML IV PRN ×2 (13:30→13:45)
[2022-03-18] MEDS ORDERED: SODIUM BICARBONATE 8.4% 1 MEQ/ML 50ML SYR IV NR (13:36)
[2022-03-18] MEDS ORDERED: EPINEPHRINE 10 MG in SODIUM CHLORIDE 0.9% 240 ML IV PRN (14:30)
[2022-03-18] MEDS ORDERED: PHYTONADIONE 10 MG in DEXTROSE 5% WATER 49 ML IV NR (16:00)
[2022-03-18] MEDS ORDERED: IPRATROPIUM/ALBUTEROL 0.5-3(2.5)MG/3ML NEB HHN SCH (16:00)
[2022-03-18] MEDS ORDERED: CEFEPIME 2,000 MG in DEXT 5% WATER 100 ML IV SCH (16:00)
[2022-03-18] MEDS ORDERED: THIAMINE HCL 100 MG in SODIUM CHLORIDE 0.9% 49 ML IV NR (16:00)
[2022-03-19] MEDS ORDERED: DOXYCYCLINE 100 MG in DEXT 5% WATER 100 ML IV SCH (03:00)
== END 2022-03-18 14:59 | DRG 720 ==
LOC: ER 09:10 → CVICU 11:55 → EDBEDREQTM 12:00 → EDBEDREQ 12:00 → ENRESERV 12:55
PROVIDERS: ADMIT Internal Medicine; ATTEND Internal Medicine
PROC: 5A12012 Performance of Cardiac Output, Single, Manual (ICD-10-PCS; principal; 2022-03-18)
PROC: 06HY33Z Insertion of Infusion Device into Lower Vein, Percutaneous Approach (ICD-10-PCS; 2022-03-18)
PROC: 5A1935Z Respiratory Ventilation, Less than 24 Consecutive Hours (ICD-10-PCS; 2022-03-18)
PROC: 0BH17EZ Insertion of Endotracheal Airway into Trachea, Via Natural or Artificial Opening (ICD-10-PCS; 2022-03-18)
DX: A41.9 Sepsis, unspecified organism (principal); R65.21 Severe sepsis with septic shock; J18.9 Pneumonia, unspecified organism; N17.9 Acute kidney failure, unspecified; J96.01 Acute respiratory failure with hypoxia; J96.02 Acute respiratory failure with hypercapnia; E44.0 Moderate protein-calorie malnutrition; D68.9 Coagulation defect, unspecified; Z20.822 Contact with and (suspected) exposure to COVID-19; E87.6 Hypokalemia; D64.9 Anemia, unspecified; N18.9 Chronic kidney disease, unspecified; F15.10 Other stimulant abuse, uncomplicated; F10.20 Alcohol dependence, uncomplicated; Z68.21 Body mass index [BMI] 21.0-21.9, adult
CPT/HCPCS: 31500; 36415; 36600; 71045; 80053; 81003; 82270; 82375; 82805; 82962; 83605; 83880; 84145; 84484; 85025; 86850; 86900; 87077; 87186; 87426; 93005; 99291; C9803; J0692; J0696; J2704; J3010; J3411; J3430; J3490; J7030; J7060; A4315